=== PATIENT | female | born 1995 | race Caucasian/White ===

== ENCOUNTER 2016-11-06 10:04 | Emergency (ER) | payer BC ==
[2016-11-06 10:14] VITALS: BP 147/91; PULSE 74; RESP 18; TEMP 97.9; O2SAT 98
--- NOTE | 2016-11-06 10:52 | EDPHY ---
H & P Time Seen by Provider: 11/06/16 10:24 HPI/ROS: CHIEF COMPLAINT: medication refill HISTORY OF PRESENT ILLNESS: 21-year-old female presents emergency department requesting a refill of her levothyroxine. Patient is a senior at [employer]. She has an invoicing specialist [place] who is refusing to refill her Synthroid. She has been out of this for 2 days. Her mother is making her an appointment with another invoicing specialist on return home upon graduation in 2 weeks. Patient reports she has been taking this same dose 137mcg for a long time. She denies any chest pain, shortness of breath, fatigue, fevers, any new symptoms. She has no complaints. Smoking Status: Never smoked Physical Exam: GEN: Awake, alert, oriented, no acute distress RESP: nl resp effort MSK: Normal appearing SKIN: No rash Constitutional: Initial Vital Signs Temperature (C) 36.6 C 11/06/16 10:11 Heart Rate 74 11/06/16 10:11 Respiratory Rate 18 11/06/16 10:11 Blood Pressure 147/91 H 11/06/16 10:11 O2 Sat (%) 98 11/06/16 10:11 O2 Delivery Mode Room Air Allergies/Adverse Reactions: No Known Allergies Allergy (Unverified 11/06/16 10:10) Home Medications: Medication Instructions Recorded Adderall 10 MG (*) 11/06/16 Levothyroxine [Synthroid 137 mcg 137 mcg PO DAILY06 #30 tab 11/06/16 (*)] Minocycline HCl 11/06/16 Synthroid 11/06/16 MDM/Departure - Depart Disposition: Home, Routine, Self-Care Clinical Impression: Medication refill Condition: Good Instructions: Medicine Refill (ED) Additional Instructions: Take your Synthroid as prescribed. Follow up with your doctor upon return home. Return to the emergency department for any questions or concerns. Prescriptions: Levothyroxine [Synthroid 137 mcg (*)] 137 mcg PO DAILY06 #30 tab Referrals: NONE *PRIMARY CARE P,. [Primary Care Provider] - As per Instructions
== END 2016-11-06 11:04 | disposition home or self-care (01) ==
DX: Z76.0 Encounter for issue of repeat prescription (principal)